=== PATIENT | female | born 1985 | race African-American/Black ===

== ENCOUNTER 2017-09-18 02:15 | Inpatient (IN) | payer OTHER ==
[2017-09-18] MEDS ORDERED: OXYTOCIN 20 UNITS in 0.9% NS 20 UNIT/1,000 ML INFUS.BAG IV ONE ×2 (03:02→06:16)
[2017-09-18] MEDS ORDERED: BUTORPHANOL TARTRATE 1 MG/ML VIAL ONE (03:23)
[2017-09-18] MEDS ORDERED: PROMETHAZINE HCL 25 MG/1 ML VIAL ONE (03:23)
[2017-09-18 03:51] VITALS: BMI 29.0
--- NOTE | 2017-09-18 03:51 | HP ---
Past Medical History - Admission Chief Complaint: Labor pain History of Present Illness: 32 yo @ 39 weeks gestation, EDC 09/22/17, admitted for labor pain. History Source: Patient Limitations to Obtaining History: No Limitations - Past Medical History ...: 2 ...Para: 1 ...EDC by [facility]: 09/22/17 - Past Surgical History Past Surgical History: Yes: None Hx Myomectomy: No Hx Transabdominal Cerclage: No - Smoking History Have you smoked in the past 12 months: No - Alcohol/Substance Use Hx Alcohol Use: No History of Substance Use: reports: None - Social History History of Recent Travel: No Home Medications - Allergies Allergies/Adverse Reactions: Allergies Allergy/AdvReac Type Severity Reaction Status Date / Time No Known Allergies Allergy Verified 09/18/17 03:34 - Home Medications Home Medications: Ambulatory Orders Ferrous Sulfate [Feosol] 325 mg PO DAILY 09/18/17 Vit/Iron Fum/Folic AC [ Tablet] 1 each PO DAILY 09/18/17 Family Disease History - Family Disease History Family History: Unremarkable Review of Systems - Review of Systems Constitutional: reports: No Symptoms Eyes: reports: No Symptoms HENT: reports: No Symptoms Neck: reports: No Symptoms Cardiovascular: reports: No Symptoms Respiratory: reports: No Symptoms Gastrointestinal: reports: No Symptoms Genitourinary: reports: Pain Breasts: reports: No Symptoms Reported Musculoskeletal: reports: No Symptoms Integumentary: reports: No Symptoms Neurological: reports: No Symptoms Endocrine: reports: No Symptoms Hematology/Lymphatic: reports: No Symptoms Psychiatric: reports: No Symptoms Pain Intensity: 9 Physical Exam - Maternity Constitutional: Yes: Well Nourished Eyes: Yes: Conjunctiva Clear HENT: Yes: Atraumatic Neck: Yes: Supple Cardiovascular: Yes: Regular Rate and Rhythm Lungs: Clear to auscultation Breast(s): Yes: WNL - Abdominal Exam/OB Number of Fetuses: Single Presentation: Vertex - Vaginal Exam/OB Dilatation (cm): 6 Amniotic Membrane Status: Intact Station: -2 - Physical Exam ...Motor Strength: WNL Psychiatric: Yes: Alert, Oriented Problem List - Problems (1) Pain during labor Code(s): O99.89 - OTH DISEASES AND CONDITIONS COMPL PREG/CHLDBRTH; R52 - PAIN, UNSPECIFIED Assessment/Plan Active labor Admit to L&D Anticipate
[2017-09-18 04:04] LABS: BASO % 0.9 % (0-2.0); EOS % 0.8 % (0-4.5); HEMATOCRIT 39.3 % (32.4-45.2); HEMOGLOBIN 13.3 GM/dL (10.7-15.3); LYMPH % 16.2 % (8-40); MCH 31.4 pg (25.7-33.7); MEAN CELL VOLUME 92.6 fl (80-96); MONO % 17.3 % (3.8-10.2); NEUT % 64.8 % (42.8-82.8); PLATELET COUNT 171 K/MM3 (134-434); RBC 4.24 M/mm3 (3.60-5.2); RDW 14.8 % (11.6-15.6); WHITE BLOOD COUNT 7.9 K/mm3 (4.0-10.0)
[2017-09-18] MEDS ORDERED: BUTORPHANOL TARTRATE 1 MG/ML VIAL IVPUSH PRN ×2 (04:07→04:10)
[2017-09-18] MEDS ORDERED: PROMETHAZINE HCL 25 MG/1 ML VIAL IVPUSH PRN (04:08)
[2017-09-18 04:15] LABS: INR 0.91 (0.82-1.09); PROTHROMBIN TIME (PATIENT) 10.3 SEC (9.7-13.0)
[2017-09-18] MEDS ORDERED: DEXTROSE 5%-LACTATED RINGERS 1,000 ML IV SCH (04:15)
[2017-09-18 04:18] LABS: ACTIVATED PTT 27.7 SECONDS (25.2-36.5)
[2017-09-18 04:21] LABS: ANION GAP 11 (8-16); BLOOD UREA NITROGEN 7 mg/dL (7-18); CHLORIDE 107 mmol/L (98-107); CO2 22 mmol/L (21-32); CREATININE 0.7 mg/dL (0.55-1.02); GLUCOSE,RANDOM 72 mg/dL (74-106); SODIUM 140 mmol/L (136-145)
[2017-09-18] MEDS ORDERED: BISACODYL 10 MG SUPP.RECT RC PRN (05:15)
[2017-09-18] MEDS ORDERED: OXYTOCIN 20 UNITS in 0.9% NS 20 UNIT/1,000 ML INFUS.BAG IV SCH (05:15)
[2017-09-18] MEDS ORDERED: WITCH HAZEL 50% (TUCKS) 40 PAD/JAR PAD TP PRN (05:15)
[2017-09-18] MEDS ORDERED: BENZOCAINE 20% 57 GM BOTTLE TP PRN (05:15)
[2017-09-18] MEDS ORDERED: BENZOCAINE 28 GM HEMORRHOIDAL OINTMENT TP PRN (05:15)
[2017-09-18] MEDS ORDERED: METHYLERGONOVINE MALEATE 0.2 MG/1 ML AMP IM PRN (05:15)
--- NOTE | 2017-09-18 10:44 | PN ---
Delivery - Delivery Vaginal Delivery: Spontaneous Type of Anesthesia: None Episiotomy/Laceration: None EBL (cc): 300 Delivery, Single - Stages of Labor Date 1st Stage Initiatied: 09/18/17 Time 1st Stage Initiated: 00:00 Date 2nd Stage Initiated: 09/18/17 Time 2nd Stage Initiated: 04:40 Date of Delivery: 09/18/17 Time of Delivery: 04:54 Time Placenta Delivered: 05:01 - Condition of Infant Conveyancer/Functional Architect Present: No Gender: Male Weight: 6 lb 15 oz Position: Left, OA Total Hours ROM (Hrs/Mins): 2hours 26minutes - 1 Minute Total Score: 7 5 Minutes Total Score: 9 - [place] Feeding Plan Initial Plan: Elected not to breastfeed exclusively throughout hospitalization Remarks - Remarks Remarks: Normal spontaneous vaginal delivery of a live over intact perineum. Nose / Oropharynx suctioned at perineum. Cord clamped and cut. Placenta expelled spontaneously intact.
[2017-09-18] MEDS: SENNOSIDES/DOCUSATE COMBO (SENNA PLUS) TABLET (UD) PO PRN (22:11)
[2017-09-19 07:52] LABS: BASO % 0.9 % (0-2.0); EOS % 0.5 % (0-4.5); HEMATOCRIT 39.5 % (32.4-45.2); HEMOGLOBIN 13.5 GM/dL (10.7-15.3); MCH 31.5 pg (25.7-33.7); MCHC 34.2 g/dl (32.0-36.0); MEAN PLT VOLUME 11.2 fl (7.5-11.1); NEUT % 68.6 % (42.8-82.8); PLATELET COUNT 168 K/MM3 (134-434); RDW 14.9 % (11.6-15.6); WHITE BLOOD COUNT 10.5 K/mm3 (4.0-10.0)
--- NOTE | 2017-09-19 08:36 | PN ---
Progress Note (short form) - Note Progress Note: ppd 1 doing well, no c/o , voidsok CBC, BMP 09/19/17 06:30 09/18/17 02:40 Last Vital Signs Temp Pulse Resp BP Pulse Ox 98.0 F 74 20 129/67 100 09/19/17 01:19 09/19/17 01:19 09/19/17 01:19 09/19/17 01:19 09/18/17 06:30 abdomen soft, no uterus firm, non tender, no distension, no cva lochia mild no calf tenderness plan ambulate, d/c home in am
[2017-09-19] MEDS: IBUPROFEN 600 MG TABLET (FP) PO PRN (19:35)
[2017-09-19] MEDS: SENNOSIDES/DOCUSATE COMBO (SENNA PLUS) TABLET (UD) PO PRN (19:37)
[2017-09-19] MEDS: ACETAMINOPHEN 325 MG TABLET (FP) PO PRN (19:37)
--- NOTE | 2017-09-20 08:12 | DS ---
Physical Exam-SENIOR ANDROID DEVELOPER Vital Signs: Vital Signs Temperature 98.2 F 09/19/17 19:39 Pulse Rate 84 09/19/17 19:39 Respiratory Rate 20 09/19/17 19:39 Blood Pressure 119/74 09/19/17 19:39 O2 Sat by Pulse Oximetry (%) 100 09/18/17 06:30 Constitutional: Yes: Well Nourished, No Distress, Calm Eyes: Yes: WNL, Conjunctiva Clear, EOM Intact HENT: Yes: WNL, Atraumatic, Normocephalic Neck: Yes: WNL, Supple, Trachea Midline Cardiovascular: Yes: WNL, Regular Rate and Rhythm Respiratory: Yes: WNL, Regular, CTA Bilaterally Gastrointestinal: Yes: WNL ...Rectal Exam: Yes: WNL Renal/: Yes: WNL ....Post : Yes: Uterus firm, Uterus non-tender, Slight lochia rubra Breast(s): Yes: WNL Musculoskeletal: Yes: WNL Extremities: Yes: WNL Integumentary: Yes: WNL Neurological: Yes: WNL, Alert, Oriented ...Motor Strength: WNL Psychiatric: Yes: WNL, Alert, Oriented Labs: CBC, BMP 09/19/17 06:30 09/18/17 02:40 Delivery - Delivery Vaginal Delivery: Spontaneous Type of Anesthesia: None Episiotomy/Laceration: None EBL (cc): 300 Delivery, Single - Stages of Labor Date 1st Stage Initiatied: 09/18/17 Time 1st Stage Initiated: 00:00 Date 2nd Stage Initiated: 09/18/17 Time 2nd Stage Initiated: 04:40 Date of Delivery: 09/18/17 Time of Delivery: 04:54 Time Placenta Delivered: 05:01 Placenta: Yes: Spontaneous - Condition of Blending Tank Helper/Head Of Maintenance Present: No Gender: Male Weight: 6 lb 15 oz Position: Left, OA Total Hours ROM (Hrs/Mins): 2hours 26minutes - 1 Minute Total Score: 7 5 Minutes Total Score: 9 - [place] Feeding Plan Initial Plan: Elected not to breastfeed exclusively throughout hospitalization Discharge Summary Reason For Visit: ADMIT LABOR Current Active Problems Pain during labor (Acute) Procedures: Principal: Hospital Course: no complication Condition: Good - Instructions Diet, Activity, Other Instructions: regular diet, follow up [facility] care 4 weeks, no intercourse - Home Medications Comprehensive Discharge Medication List: Ambulatory Orders Ferrous Sulfate [Feosol] 325 mg PO DAILY 09/18/17 Vit/Iron Fum/Folic AC [ Tablet] 1 each PO DAILY 09/18/17 Ibuprofen [Motrin -] 600 mg PO QID #28 tablet 09/19/17
[2017-09-20] MEDS: IBUPROFEN 600 MG TABLET (FP) PO PRN (09:37)
[2017-09-20] MEDS ORDERED: guaiFENesin 200 MG/10 ML 10 ML UNIT-DOSE CUPS PO PRN (09:56)
[2017-09-20] MEDS ORDERED: BENZOCAINE/MENTH/CETYLPYRD CL 1 EACH LOZENGE MM PRN (09:56)
[2017-09-20] MEDS: ACETAMINOPHEN 325 MG TABLET (FP) PO PRN (10:37)
[2017-09-20 12:06] VITALS: BP 129/72; PULSE 88; TEMP 98.9
== END 2017-09-20 13:00 | disposition home or self-care (01) | DRG 560 ==
LOC: JLDR 02:15 → J3W 07:57
PROVIDERS: ADMIT Obstetrics & Gynecology; ATTEND Obstetrics & Gynecology
PROC: 10E0XZZ Delivery of Products of Conception, External Approach (ICD-10-PCS; principal; 2017-09-18)
DX: O80 Encounter for full-term uncomplicated delivery (principal); Z3A.39 39 weeks gestation of pregnancy; Z37.0 Single live birth
CPT/HCPCS: 36415; 59409; 80048; 85025; 85610; 85730; 86593; 86850; 86900; 86901